=== PATIENT | male | born 1970 | race Caucasian/White ===

== ENCOUNTER → 2018-09-20 | Outpatient (REF) | payer OTHER | LOC: M SFHCLERA 11:02 | DX: J02.9 Acute pharyngitis, unspecified (principal) ==

== ENCOUNTER 2018-12-06 10:23 | Emergency (ER) | payer OTHER ==
[~2018-12-06] VITALS: Ht 175.3 cm; Wt 90.9 kg
[2018-12-06] MEDS ORDERED: PANT20TA2 (10:32)
--- NOTE | 2018-12-06 11:56 | REP ---
Clinical: Pain with recent trauma. Technique: Internal rotation, external rotation, and Y view of the right shoulder. Findings: Early moderate arthritic changes include cortical irregularity and inferior spurring at the acromioclavicular joint. There appears to be widening of the acromioclavicular joint to 2.1 cm which may be chronic and appears relatively similar to chest x-ray dated 09/26/2018. The subacromial space is decreased to 8 mm. The glenohumeral joint appears intact. Impression: Moderate arthritic changes primarily involving the acromioclavicular joint as detailed above. Electronically Signed by Johnathan Burrows MD 12/06/2018 11:46 A
[2018-12-06] MEDS ORDERED: KETO10TAB PO (12:11)
[2018-12-06] MEDS ORDERED: KETOROLAC TROMETHAMINE 10 MG TAB PO ONE (12:15)
[2018-12-06 12:21] VITALS: BP 159/90
== END 2018-12-06 12:24 | disposition home or self-care (01) ==
LOC: M ED 10:23
DX: S43.51XA Sprain of right acromioclavicular joint, initial encounter (principal); W00.0XXA Fall on same level due to ice and snow, initial encounter; Y92.89 Other specified places as the place of occurrence of the external cause; Y99.0 Civilian activity done for income or pay; G47.33 Obstructive sleep apnea (adult) (pediatric); K21.9 Gastro-esophageal reflux disease without esophagitis; M19.90 Unspecified osteoarthritis, unspecified site; Z87.820 Personal history of traumatic brain injury; Z88.0 Allergy status to penicillin; Z98.84 Bariatric surgery status

== ENCOUNTER → 2019-01-09 | Outpatient (CLI) | payer OTHER ==
[~2019-01-09] MED LIST: KETO10TAB PO; PANT20TA2
--- NOTE | 2019-01-10 09:23 | REP ---
MRI RIGHT SHOULDER: TECHNIQUE: Axial T2 fat sat, gradient echo, sagittal oblique T2 fat sat, coronal oblique T1, T2 fat sat. COMPARISON: 03/29/2012 There are complete full-thickness tears or the supraspinatus and infraspinatus tendons with retraction approximately 5 cm. The distal end of the clavicle has been previously resected. Acromion appears to be type 2. The patient appears to have had a prior biceps tenodesis with a surgical anchor in the proximal humeral shaft noted. Biceps tendon is not seen in the superior bicipital groove. There is no Hill-Sachs deformity. No abnormal signal is seen in the deltoid muscle. There is diffuse fraying of the superior labrum. Otherwise, I see no evidence of a labral tear. There appear to be two anchors in the superolateral humeral head from prior surgical procedure. There is some mild marrow edema in that region of the humeral head. There is a moderate joint effusion. IMPRESSION: Full thickness complete tears of supraspinatus and infraspinatus tendons with retraction in the range of 5 cm. There appears to have been prior resection of the distal end of the clavicle. The acromion appears to be type 2. The patient also appears to have had a prior biceps tenodesis and there are at least two anchors in the superolateral humeral head with mild marrow edema in that region. Superior labrum is frayed. Otherwise no labral tear is seen. Moderate joint effusion. Electronically Signed by Artemio Rollins MD 01/10/2019 03:25 P
== END ==
LOC: M RAD 16:51
PROVIDERS: ATTEND Orthopaedic Surgery Sports Medicine
DX: S46.011A Strain of muscle(s) and tendon(s) of the rotator cuff of right shoulder, initial encounter (principal); S43.431A Superior glenoid labrum lesion of right shoulder, initial encounter; X58.XXXA Exposure to other specified factors, initial encounter; Y92.89 Other specified places as the place of occurrence of the external cause; M25.411 Effusion, right shoulder